=== PATIENT | male | born 1970 | race Caucasian/White ===

== ENCOUNTER 2020-02-20 17:45 | Emergency (ER) | payer BC ==
[2020-02-20] MEDS ORDERED: fentaNYL 100 MCG/2 ML SDV IVPUSH ONE (18:10)
--- NOTE | 2020-02-20 18:15 | EDM.PDOC ---
ED HPI GENERAL MEDICAL PROBLEM - General Chief Complaint: Genitourinary Problem Stated Complaint: HERNIA Time Seen by Provider: 02/20/20 18:08 - History of Present Illness INITIAL COMMENTS - FREE TEXT/NARRATIVE: 49-year-old male presents the emergency room with left-sided testicular pain. This developed gradually and developed to be quite severe over a couple of hours. It is been this bad for about an hour now. Patient presents the emergency room for treatment of this. Patient has a history of kidney stones but this is much different than any kidney stone he is ever had the pain is strictly in his left testicle at this point. Patient's had some nausea no vomiting denies any other complaints. Patient has had multiple kidney stones in the past. He denies fevers or chills no burning or frequency with urination he has not noticed any blood in his urine. He is in excruciating pain. Left Scrotum Pain Score (Numeric/FACES): 8 - Related Data Allergies Allergy/AdvReac Type Severity Reaction Status Date / Time No Known Allergies Allergy Verified 02/20/20 18:06 Home Meds: Home Meds Tamsulosin [Tamsulosin 24 Hr] 0.4 mg PO ASDIRECTED #10 cap.er 02/20/20 [Rx] ED ROS GENERAL - Review of Systems Review Of Systems: See Below Constitutional: Reports: No Symptoms HEENT: Reports: No Symptoms Respiratory: Reports: No Symptoms Cardiovascular: Reports: No Symptoms Endocrine: Reports: No Symptoms GI/Abdominal: Reports: No Symptoms, Nausea : Reports: Other (Testicular pain) Musculoskeletal: Reports: No Symptoms Skin: Reports: No Symptoms Neurological: Reports: No Symptoms Psychiatric: Reports: No Symptoms ED EXAM, RENAL/ - Physical Exam Exam: See Below Exam Limited By: No Limitations General Appearance: Moderate Distress (From the pain he is very uncomfortable but is answering questions appropriately and is very cooperative) Head: Atraumatic, Normocephalic Neck: Normal Inspection, Supple, Non-Tender, Full Range of Motion Respiratory/Chest: No Respiratory Distress, Lungs Clear, Normal Breath Sounds Cardiovascular: Regular Rate, Rhythm, No Edema, No Murmur GI/Abdominal: Normal Bowel Sounds, Soft, Non-Tender (Pain is non-aggravated with palpation of the abdomen. No rigidity rebound or guarding noted) (Male) Exam: Scrotum Tenderness (L) (Mild to moderate pain with palpation no significant swelling palpation is otherwise unremarkable) Back Exam: Normal Inspection. No: CVA Tenderness (L), CVA Tenderness (R) Neurological: Alert, Oriented, Normal Cognition Skin Exam: Warm, Dry, Intact Course - Vital Signs Last Recorded V/S: Last Vital Signs Temp 37.4 C 02/20/20 18:07 Pulse 85 02/20/20 18:07 Resp 16 02/20/20 18:07 BP 117/83 02/20/20 18:07 Pulse Ox 100 02/20/20 18:07 - Orders/Labs/Meds Labs: Laboratory Tests 02/20/20 02/20/20 02/20/20 Range/Units 18:00 18:00 18:35 WBC 10.16 H (4.23-9.07) K/mm3 RBC 4.76 (4.63-6.08) M/mm3 Hgb 14.7 (13.7-17.5) gm/dl Hct 44.1 (40.1-51.0) % MCV 92.6 H (79.0-92.2) fl MCH 30.9 (25.7-32.2) pg MCHC 33.3 (32.2-35.5) g/dl RDW Std Deviation 45.2 H (35.1-43.9) fL Plt Count 274 (163-337) K/mm3 MPV 10.2 (9.4-12.3) fl Neut % (Auto) 71.3 H (34.0-67.9) % Lymph % (Auto) 19.9 L (21.8-53.1) % Rich % (Auto) 7.9 (5.3-12.2) % Eos % (Auto) 0.6 L (0.8-7.0) Baso % (Auto) 0.2 (0.1-1.2) % Neut # (Auto) 7.25 H (1.78-5.38) K/mm3 Lymph # (Auto) 2.02 (1.32-3.57) K/mm3 Rich # (Auto) 0.80 (0.30-0.82) K/mm3 Eos # (Auto) 0.06 (0.04-0.54) K/mm3 Baso # (Auto) 0.02 (0.01-0.08) K/mm3 Manual Slide Review Normal smear Sodium 142 (136-145) mEq/L Potassium 3.4 L (3.5-5.1) mEq/L Chloride 103 (98-107) mEq/L Carbon Dioxide 24 (21-32) mEq/L Anion Gap 18.4 H (5-15) BUN 16 (7-18) mg/dL Creatinine 1.1 (0.7-1.3) mg/dL Est Cr Clr Drug Dosing 87.47 mL/min Estimated GFR (MDRD) > 60 (>60) mL/min BUN/Creatinine Ratio 14.5 (14-18) Glucose 101 (74-106) mg/dL Calcium 9.8 (8.5-10.1) mg/dL Total Bilirubin 0.3 (0.2-1.0) mg/dL AST 25 (15-37) U/L ALT 31 (16-63) U/L Alkaline Phosphatase 88 (46-116) U/L Total Protein 7.7 (6.4-8.2) g/dl Albumin 4.6 (3.4-5.0) g/dl Globulin 3.1 gm/dL Albumin/Globulin Ratio 1.5 (1-2) Urine Color Yellow (Yellow) Urine Appearance Clear (Clear) Urine pH 7.0 (5.0-8.0) Ur Specific [place] 1.025 (1.005-1.030) Urine Protein Negative (Negative) Urine Glucose (UA) Negative (Negative) Urine Ketones 1+ H (Negative) Urine Occult Blood Negative (Negative) Urine Nitrite Negative (Negative) Urine Bilirubin Negative (Negative) Urine Urobilinogen 0.2 (0.2-1.0) Ur Leukocyte Esterase Negative (Negative) Urine RBC 0-5 (0-5) /hpf Urine WBC 0-5 (0-5) /hpf Ur Squamous Epith Cells 0-5 (0-5) /hpf Amorphous Sediment Few H (NOT SEEN) /hpf Urine Bacteria Few (FEW) /hpf Urine Mucus Few (FEW) /hpf Meds: Medications Discontinued Medications Generic Name Dose Route Start Last Admin Trade Name Freq PRN Reason Stop Dose Admin Fentanyl 100 mcg 02/20/20 18:10 02/20/20 18:15 Sublimaze IVPUSH 02/20/20 18:11 100 mcg ONETIME ONE Administration Potassium Chloride 40 meq 02/20/20 19:58 Klor-Con M20 PO 02/20/20 19:59 ONETIME ONE Tamsulosin HCl 0.4 mg 02/20/20 19:57 Flomax PO 02/20/20 19:58 ONETIME ONE - Re-Assessments/Exams Free Text/Narrative Re-Assessment/Exam: 02/20/20 20:03 Excruciating pain mostly in his left testicle. Palpation was not comfortable but did not seem to justify the amount of pain he was in. Received some fentanyl did better and was able to relax he went over for testicular ultrasound that showed some mild epididymis did a mitis and a mild hydrocele certainly nothing that would explain his discomfort. He was sent for CT considering a CAT scan as he is had problems with stones in the past and rarely had kidney stone will present his testicular pain. And this did show a mid to proximal ureter 5 mm obstructing stone. He had noticeable hydronephrosis and hydroureter proximal to this. Urinalysis did not show any blood. Is resting very comfortably at this point he would like to go. We will discharge the patient he lives in [place] and he should follow-up with his regular provider he will receive a dose of Flomax and a dose of potassium as his potassium was slightly low at 3.4 prior to leaving. He will be dispensed 20 [place] from the [employer] machine in the waiting room with directions to take 1 or 2 every 4-6 hours as needed for pain. He should follow-up with his regular provider back home in [place] later this week for recheck the patient will be given a copy of his CT report and labs. He also will be given a paper prescription for Flomax as he will be traveling tomorrow. He is informed that the medicine shop here in [facility] is open from noon to 2 tomorrow afternoon Departure - Departure Time of Disposition: 20:08 Disposition: Home, Self-Care 01 Clinical Impression: Kidney stone on left side - Discharge Information Prescriptions: Tamsulosin [Tamsulosin 24 Hr] 0.4 mg PO ASDIRECTED #10 cap.er Instructions: Kidney Stones, [id number] Referrals: PCP,Not In Area [Primary Care Provider] - Forms: ED Department Discharge Additional Instructions: Return to the emergency room with any questions problems or worsening symptoms. Follow-up with your regular provider on Friday or of this next week for recheck. You will be sent home with a copy of your CT report and your labs. Use the pain medication, the hydrocodone/acetaminophen 1 or 2 every 4-6 hours as needed for pain. This is the one you got from the machine out in the waiting room. Do not drive or return to work within 12 hours using this medication. You have been given a paper prescription for Flomax. This may help with the passage of the stone. Get this filled along the way home or when you get home and take 1 daily. Sepsis Event Note - Focused Exam Vital Signs: Vital Signs Temp Pulse Resp BP Pulse Ox 02/20/20 18:07 37.4 C 85 16 117/83 100 Date Exam was Performed: 02/20/20 Time Exam was Performed: 20:14
--- NOTE | 2020-02-20 19:08 | US ---
Testicular ultrasound: Multiple real-time images of the testicles were obtained. Testicles show a homogeneous ultrasound appearance. No intratesticular abnormality is seen. Varicocele is noted on the left side. Small amount of fluid is noted around the left testicle. No right-sided hydrocele is seen. Both arterial and venous blood flow are seen within the testicles. Measurements: Right testicle: 4.7 x 3.4 x 2.2 cm Left testicle: 4.7 x 2.7 x 2.3 cm Impression: 1. Left-sided varicocele and small left-sided hydrocele. 2. No additional abnormality is appreciated on testicular ultrasound exam. Diagnostic code #3 This report was dictated in MDT
--- NOTE | 2020-02-20 19:41 | CT ---
CT abdomen and pelvis Technique: Multiple axial sections were obtained from above the dome of the diaphragm inferiorly through the pubic symphysis. Intravenous and oral contrast was not utilized. Study has been performed as a ureteral stone protocol. Findings: Multiple small nonobstructing calculi are seen within both kidneys, more numerous on the right side. Obstructing 5 mm stone noted within the proximal to mid left ureter which is located at the L4 level. This causes proximal hydronephrosis. No other ureteral stones are seen. Liver shows 2 small low density lesions. These are noted within the left lobe of the liver are felt compatible with small cysts. Larger cyst measures 1 cm. Spleen size is normal. Adrenal glands show no nodule. Gallbladder contains no calcified gallstones. Pancreas appears within normal limits. Aorta shows atherosclerotic calcification which continues into the iliac vessels. No retroperitoneal adenopathy or mesenteric abnormalities are seen. No pelvic mass or adenopathy is seen. No free fluid or inflammatory change is appreciated. Bone window settings were reviewed. No acute osseous finding is seen. Mild degenerative change is scattered within the spine. Impression: 1. 5 mm obstructing stone within the mid to proximal left ureter. 2. Multiple small nonobstructing calculi within both kidneys, more numerous on the right side. 3. Other findings believed to be nonacute and incidental. Diagnostic code #3 This report was dictated in MDT
[2020-02-20] MEDS ORDERED: Tamsulosin 0.4 MG Cap.ER PO ONE (19:57)
[2020-02-20] MEDS ORDERED: Potassium Chloride 20 MEQ Tab.ER PO ONE (19:58)
== END 2020-02-20 20:30 | disposition home or self-care (01) ==
LOC: JD.ED 17:45
DX: N13.2 Hydronephrosis with renal and ureteral calculous obstruction (principal)
CPT/HCPCS: 36415; 74176; 76870; 80053; 81001; 85025; 93975; 96374; 99284; A9270; J3010; 99283